=== PATIENT | female | born 1990 | race Two or more races ===

== ENCOUNTER 2017-08-02 17:41 | Emergency (ER) | payer OTHER ==
[~2017-08-02] VITALS: Ht 170.2 cm; Wt 72.3 kg
[2017-08-02] MEDS ORDERED: ZOFR4TAB3 PO ×2 (17:54→22:09)
[2017-08-02] MEDS ORDERED: ONDANSETRON 4MG/2ML VIAL (J2405) IV ONE ×2 (18:15→19:45)
[2017-08-02] MEDS ORDERED: NS 500 ML IV ONE (18:15)
[2017-08-02 19:19] LABS: BASO % 0.5 % (0.0-1.0); EOS # 0.1 K/mm3 (0.0-0.50); EOS % 1.6 % (0.0-3.0); LARGE UNSTAINED CELL # 0.2 K/mm3 (0.0-0.4); LARGE UNSTAINED CELL % 1.9 % (0.0-4.0); LYMPH # 1.7 K/mm3 (1.5-6.5); LYMPH % 21.7 % (24.0-44.0); MEAN CORPUSCULAR HEMOGLOBIN 34.8 pg (27.0-33.0); MEAN CORPUSCULAR HGB CONC 36.4 g/dl (32.0-36.5); MEAN CORPUSCULAR VOLUME 95.8 fl (80.0-96.0); MONO # 0.5 K/mm3 (0.0-0.8); MONO % 5.9 % (0.0-5.0); NEUTROPHILS # 5.4 K/mm3 (1.8-7.7); NEUTROPHILS % 68.4 % (36.0-66.0); PLATELET COUNT, AUTOMATED 265 k/mm3 (150-450); RED CELL DISTRIBUTION WIDTH 11.1 % (11.5-14.5); WHITE BLOOD COUNT 7.9 K/mm3 (4.0-10.0)
--- NOTE | 2017-08-02 19:46 | ECGEPIP ---
Stationary ECG Study [facility] - ED Test Date: 2017-08-02 Pat Name: OCTAVIANO ANNE Department: Room: - Gender: F Product Safety Officer: RodriguezB: 1990 Requested By: OZZIE Glover Order Number: [id number] Reading MD: Boy Montenegro Measurements Intervals [place] Rate: 69 P: 17 DC: 169 QRS: 15 QRSD: 78 T: 8 QT: 364 QTc: 392 Interpretive Statements SINUS RHYTHM NONSPECIFIC ST T WAVE CHANGES NO OLD ECG FOR COMPARISON Electronically Signed On 08-02-2017 19:46:20 EDT by Boy Montenegro
[2017-08-02 19:52] LABS: ALBUMIN 3.7 GM/DL (3.2-5.2); ALBUMIN/GLOBULIN RATIO 1.16 (1.00-1.93); ALKALINE PHOSPHATASE 46 U/L (45-117); ALT/SGPT 18 U/L (12-78); ANION GAP 10 MEQ/L (8-16); AST/SGOT 6 U/L (15-37); BILIRUBIN,DIRECT < 0.1 MG/DL (0.0-0.2); BILIRUBIN,TOTAL 0.1 MG/DL (0.2-1.0); BLOOD UREA NITROGEN 10 MG/DL (7-18); CALCIUM LEVEL 8.6 MG/DL (8.5-10.1); CARBON DIOXIDE LEVEL 25 MEQ/L (21-32); CHLORIDE LEVEL 109 MEQ/L (98-107); CREATININE FOR GFR 0.66 MG/DL (0.55-1.02); GLOMERULAR FILTRATION RATE > 60.0 (>60); GLUCOSE, FASTING 89 MG/DL (70-105); HCG, SERUM QUANTITATIVE 82992 MIU/ML; POTASSIUM SERUM 4.2 MEQ/L (3.5-5.1); SODIUM LEVEL 144 MEQ/L (136-145); TOTAL PROTEIN 6.9 GM/DL (6.4-8.2)
[2017-08-02 20:50] LABS: MICROSCOPIC INDICATED? NO (NO)
--- NOTE | 2017-08-02 21:50 | REPUSA ---
Clinical history: vomiting. Findings: Real-time transabdominal ultrasound images of the pelvis were obtained. There is a single i ntrauterine gestation noted. The crown rump length measures 0.7 cm. The heart rate measures 137 bpm. There is no evidence of a subchorionic hemorrhage. An anteverted uterus is noted, measuring 9.7 x 5.1 x 6.3 cm. The uterus demonstrates normal echotexture and echogenicity. The endometrial stripe measures 3 mm and is within normal limits. The right ovary measures 3.0 x 2.3 x 1.5 cm. The left ovar y measures 3.6 x 2.9 x 2.7 cm. A 2.3 cm simple cyst in the left ovary. No adnexal masses are seen. Co ajne Doppler flow is seen within both ovaries. There is no evidence of free fluid. Impression: 1. Single live intrauterine measuring 6 weeks 4 days, with a heart rate of 137 bpm. 2. No gross abnormalities appreciated. 3. Left ovarian corpus luteum cyst.
[2017-08-02 22:14] VITALS: BP 111/70
== END 2017-08-02 22:30 | disposition home or self-care (01) ==
LOC: M ED 17:41
DX: O21.9 Vomiting of pregnancy, unspecified (principal); O99.89 Other specified diseases and conditions complicating pregnancy, childbirth and the puerperium; R55 Syncope and collapse; O99.281 Endocrine, nutritional and metabolic diseases complicating pregnancy, first trimester; E16.2 Hypoglycemia, unspecified; O99.411 Diseases of the circulatory system complicating pregnancy, first trimester; I95.9 Hypotension, unspecified; Z3A.01 Less than 8 weeks gestation of pregnancy; Z88.5 Allergy status to narcotic agent; Z88.1 Allergy status to other antibiotic agents
CPT/HCPCS: 76801; 80048; 80076; 81001; 84702; 85025; 87210; 87491; 87591; 93005; 96374; 96376; 99284; J2405

== ENCOUNTER 2017-08-28 13:59 | Emergency (ER) | payer OTHER ==
[~2017-08-28] VITALS: Ht 170.2 cm; Wt 71.8 kg
[~2017-08-28 13:59] MED LIST: ZOFR4TAB3 PO
[2017-08-28] MEDS ORDERED: RANI15TA PO (14:14)
[2017-08-28] MEDS ORDERED: diphenhydrAMINE INJ 50MG/ML VIAL (J1200) IV STA (15:39)
[2017-08-28] MEDS ORDERED: NS 1,000 ML IV ONE (15:45)
[2017-08-28] MEDS ORDERED: METOCLOPRAMIDE INJ 10MG/2ML VIAL (J2765) IV ONE (15:45)
[2017-08-28 16:56] LABS: MEAN CORPUSCULAR HEMOGLOBIN 33.6 pg (27.0-33.0); MEAN CORPUSCULAR HGB CONC 36.5 g/dl (32.0-36.5); PLATELET COUNT, AUTOMATED 215 10^3/uL (150-450); RED CELL DISTRIBUTION WIDTH 11.2 % (11.5-14.5); WHITE BLOOD COUNT 16.6 10^3/uL (4.0-10.0)
[2017-08-28 16:57] LABS: VENOUS BASE EXCESS -1.5 (-2.0-2.0); VENOUS O2 SATURATION 76.4 % (60.0-80.0); VENOUS PARTIAL PRESSURE CO2 50.1 mmHg (38.0-50.0); VENOUS STANDARD HCO3 22.7 MEQ/L; VENOUS TOTAL CO2 26.8 MEQ/L (24.0-28.0)
[2017-08-28 17:00] LABS: ADD MANUAL DIFFER YES; DIFF SLIDE NUMBER 294
[2017-08-28 17:03] LABS: ANION GAP 10 MEQ/L (8-16); BLOOD UREA NITROGEN 9 MG/DL (7-18); CALCIUM LEVEL 9.4 MG/DL (8.5-10.1); CARBON DIOXIDE LEVEL 23 MEQ/L (21-32); CHLORIDE LEVEL 101 MEQ/L (98-107); CREATININE FOR GFR 0.57 MG/DL (0.55-1.02); GLOMERULAR FILTRATION RATE > 60.0 (>60); GLUCOSE, FASTING 102 MG/DL (70-105); POTASSIUM SERUM 3.5 MEQ/L (3.5-5.1); SODIUM LEVEL 134 MEQ/L (136-145)
[2017-08-28 17:49] LABS: BASOPHILS 1 % (0-4)
[2017-08-28] MEDS ORDERED: ACETAMINOPHEN TAB 650MG DOSE (2X325MG) PO ONE (18:00)
[2017-08-28] MEDS ORDERED: ONDANSETRON 4MG/2ML VIAL (J2405) IV ONE (20:15)
[2017-08-28] MEDS ORDERED: REGL10TA6 PO (20:17)
[2017-08-28] MEDS ORDERED: TYLE325T5 PR (20:32)
[2017-08-28 20:36] VITALS: BP 114/56
== END 2017-08-28 20:46 | disposition home or self-care (01) ==
LOC: M ED 13:59
DX: R51 Headache (principal); R11.2 Nausea with vomiting, unspecified; Z88.1 Allergy status to other antibiotic agents; Z88.5 Allergy status to narcotic agent
CPT/HCPCS: 80048; 82803; 85025; 85652; 86140; 96361; 96374; 96375; 99284; J1200; J2405; J2765

== ENCOUNTER 2018-01-15 18:46 | Outpatient (CLI) | payer OTHER | END 2018-01-15 20:21 | disposition home or self-care (01) | LOC: M LDO 18:46 | DX: O36.8130 Decreased fetal movements, third trimester, not applicable or unspecified (principal); Z3A.30 30 weeks gestation of pregnancy; O62.0 Primary inadequate contractions | CPT/HCPCS: 59025 ==

== ENCOUNTER 2018-03-26 00:50 | Inpatient (IN) | payer OTHER ==
[2018-03-26] MEDS: LR 1,000 ML IV ×3 (02:14→18:44)
[2018-03-26 02:53] LABS: HEMATOCRIT 37.4 % (36.0-47.0); HEMOGLOBIN 13.3 g/dl (12.0-15.5); MEAN CORPUSCULAR HEMOGLOBIN 34.7 pg (27.0-33.0); MEAN CORPUSCULAR HGB CONC 35.6 g/dl (32.0-36.5); MEAN CORPUSCULAR VOLUME 97.7 fl (80.0-96.0); PLATELET COUNT, AUTOMATED 259 10^3/uL (150-450); RED BLOOD COUNT 3.83 10^6/uL (4.00-5.40); RED CELL DISTRIBUTION WIDTH 11.9 % (11.5-14.5); WHITE BLOOD COUNT 12.6 10^3/uL (4.0-10.0)
[2018-03-26] MEDS ORDERED: FENTANYL 2MCG/ML ROPIVACAINE 0.2% IN 0.9% NACL 200ML IVBAG As Ordered (03:51)
[2018-03-26] MEDS ORDERED: diphenhydrAMINE INJ 50MG/ML VIAL (J1200) IV (04:45)
[2018-03-26] MEDS ORDERED: LACTATED RINGER'S 1000 ML IV (04:45)
[2018-03-26] MEDS ORDERED: EPIDURAL/PCA KEYS XX (04:45)
[2018-03-26] MEDS ORDERED: EPIDURAL COMMENT XX (04:45)
[2018-03-26] MEDS ORDERED: REFRIGERATOR IV KEYS XX (04:45)
[2018-03-26] MEDS ORDERED: NALOXONE INJ 0.4 MG/1 ML VIAL (J2310) IV (04:45)
[2018-03-26] MEDS ORDERED: ePHEDrine SULFATE 25 MG/5 ML(5MG/ML) SYRINGE IV (04:45)
[2018-03-26] MEDS: FENTANYL/ROPIVACAINE/NACL BAG 200 ML EPIDURAL (04:45)
[2018-03-26] MEDS: OXYTOCIN DRIP 30 UNITS in APPROPRIATE DILUENT 1 EA IV (05:35)
[2018-03-26] MEDS: ONDANSETRON 4MG/2ML VIAL (J2405) IV (07:39)
[2018-03-26] MEDS: FAMOTIDINE IV BAG 20 MG in APPROPRIATE DILUENT 1 EA IV ×2 (09:52→21:50)
[2018-03-26] MEDS ORDERED: PANTOPRAZOLE SODIUM 40 MG in D5W 50 ML IV (17:15)
[2018-03-26] MEDS: CALCIUM CARBONATE 500 MG CHEW U/D PO (18:02)
[2018-03-26] MEDS ORDERED: METHYLERGONOVINE MALEATE 0.2 MG TAB PO (22:15)
[2018-03-26] MEDS ORDERED: DIBUCAINE 1% OINTMENT 30GM TOP (22:15)
[2018-03-26] MEDS ORDERED: MEASLES,MUMPS,RUBELLA VACCINE INJ (MMR-II) (90707) SC (22:15)
[2018-03-26] MEDS ORDERED: RHOGAM 300 MCG (1500 IU) INJ (J2790) IM (22:15)
[2018-03-26] MEDS: LIDOCAINE 1% MDV 20ML VIAL INFIL (22:15)
[2018-03-26] MEDS ORDERED: PROMETHAZINE 25 MG TAB PO (22:15)
[2018-03-26] MEDS: AMPICILLIN SOD/SULBACTAM SOD 3 GM in D5W MINI-BAG PLUS 100 ML IV (22:15)
[2018-03-27] MEDS: FENTANYL/ROPIVACAINE/NACL BAG 200 ML EPIDURAL (00:45)
[2018-03-27] MEDS: IBUPROFEN 800 MG TAB PO ×3 (01:00→16:27)
[2018-03-27] MEDS: LR 1,000 ML IV (01:30)
[2018-03-27] MEDS: DOCUSATE SODIUM 100 MG CAP PO ×2 (01:45→20:57)
[2018-03-27] MEDS: ACETAMINOPHEN 500 MG TAB PO (05:25)
[2018-03-27] MEDS: PRENATAL VITAMINS CHEWABLE TABLET PO (08:22)
[2018-03-27] MEDS: FAMOTIDINE 20 MG TAB PO ×2 (10:42→20:57)
[2018-03-27 11:20] LABS: BEDSIDE GLUCOSE 93 MG/DL (70-105)
[2018-03-27 16:45] LABS: MEAN CORPUSCULAR HEMOGLOBIN 34.3 pg (27.0-33.0); MEAN CORPUSCULAR HGB CONC 34.1 g/dl (32.0-36.5); MEAN CORPUSCULAR VOLUME 100.3 fl (80.0-96.0); PLATELET COUNT, AUTOMATED 211 10^3/uL (150-450); RED BLOOD COUNT 2.89 10^6/uL (4.00-5.40); RED CELL DISTRIBUTION WIDTH 12.2 % (11.5-14.5); WHITE BLOOD COUNT 13.4 10^3/uL (4.0-10.0)
[2018-03-27 16:48] LABS: HEMOGLOBIN 9.9 g/dl (12.0-15.5)
[2018-03-28] MEDS: IBUPROFEN 800 MG TAB PO ×2 (02:44→10:16)
[2018-03-28] MEDS: FAMOTIDINE 20 MG TAB PO (08:06)
[2018-03-28] MEDS: PRENATAL VITAMINS CHEWABLE TABLET PO (08:06)
[2018-03-28] MEDS: DOCUSATE SODIUM 100 MG CAP PO (10:16)
== END 2018-03-28 12:50 | disposition home or self-care (01) | DRG 767 ==
LOC: M LDO 00:50 → M OBS 03-27 00:56 → M LDI 02:03
PROVIDERS: Obstetrics & Gynecology
PROC: 10D17Z9 Manual Extraction of Products of Conception, Retained, Via Natural or Artificial Opening (ICD-10-PCS; principal; 2018-03-26)
PROC: 10E0XZZ Delivery of Products of Conception, External Approach (ICD-10-PCS; 2018-03-26)
PROC: 0HQ9XZZ Repair Perineum Skin, External Approach (ICD-10-PCS; 2018-03-26)
DX: O42.02 Full-term premature rupture of membranes, onset of labor within 24 hours of rupture (principal); O99.62 Diseases of the digestive system complicating childbirth; Z37.0 Single live birth; O73.0 Retained placenta without hemorrhage; Z3A.40 40 weeks gestation of pregnancy; O48.0 Post-term pregnancy; O69.89X0 Labor and delivery complicated by other cord complications, not applicable or unspecified; O70.0 First degree perineal laceration during delivery; K21.9 Gastro-esophageal reflux disease without esophagitis; O90.81 Anemia of the puerperium

== ENCOUNTER 2018-04-13 20:54 | Emergency (ER) | payer OTHER ==
[~2018-04-13 20:54] MED LIST changes: +ISOVUE-370 76% 100ML VIAL (Q9967) As Ordered; -ZOFR4TAB3 PO
[2018-04-13] MEDS: NS 1,000 ML IV (23:14)
== END 2018-04-13 23:54 | disposition home or self-care (01) ==
LOC: M ED 20:54
DX: M79.604 Pain in right leg (principal); R51 Headache; Z79.899 Other long term (current) drug therapy; Z88.5 Allergy status to narcotic agent; Z88.0 Allergy status to penicillin; Z91.89 Other specified personal risk factors, not elsewhere classified; Z88.8 Allergy status to other drugs, medicaments and biological substances
CPT/HCPCS: Q9967